=== PATIENT | female | born 1955 | race Two or more races ===

== ENCOUNTER 2023-12-07 17:54 | Inpatient (IN) | payer OTHER ==
[~2023-12-07] VITALS: Ht 160 cm; Wt 82.0 kg
[2023-12-07] MEDS ORDERED: SODIUM CHLORIDE 0.9% 1,000 ML IVB ONE (19:00)
[2023-12-07] MEDS ORDERED: ONDANSETRON HCL 4 MG/2 ML VIAL IV ONE (19:00)
[2023-12-07] MEDS ORDERED: MORPHINE SULFATE 4 MG/ML SYR/VIAL IV ONE (19:00)
[2023-12-07 19:27] LABS: Basophils # (auto) 0.1 10 ^3/uL (0-0.2); Basophils % (auto) 0.5 % (0.0-2.0); Eosinophils # (auto) 0 10 ^3/uL (0-0.8); Eosinophils % (auto) 0.3 % (0.0-7.0); Hemoglobin 13.6 g/dL (12.2-16.2); Lymphocytes # (auto) 2.1 10 ^3/uL (0.4-5.4); Lymphocytes % (auto) 14.4 % (10.0-50.0); Mean Corpuscular Hemoglobin 30.6 pg (28.0-32.0); Mean Corpuscular Hgb Conc. 33.1 g/dL (32.0-36.0); Mean Corpuscular Volume 92.4 fL (80.0-100.0); Monocytes # (auto) 0.7 10 ^3/uL (0-1.3); Monocytes % (auto) 4.6 % (0.0-12.0); Neutrophils # (auto) 11.6 10 ^3/uL (1.6-8.6); Neutrophils % (auto) 80.2 % (37.0-80.0); Nucleated Red Blood Cells % 0.1 %; Red Blood Cells 4.44 10^6/uL (4.0-5.20); Red Cell Distribution Width 13.4 % (11.8-14.3); White Blood Cell 14.4 10^3/uL (4.4-10.8)
[2023-12-07 19:41] LABS: INR 1.01 (0.9-1.15); Partial Thromboplastin Time 23.9 SEC (24.5-34.5); Prothrombin Time 10.6 sec (9.3-11.8)
[2023-12-07 19:42] LABS: Alanine Aminotransferase 23 U/L (7-40); Albumin 4.3 g/dL (3.2-4.8); Alkaline Phosphatase 84 U/L (46-116); Anion Gap 8 (5-15); Aspartate Aminotransferase 22 U/L (13-40); BUN/Creatinine Ratio 18.1 (10.0-20.0); Blood Urea Nitrogen 13 mg/dL (9-23); Calcium 9.6 mg/dL (8.7-10.4); Carbon Dioxide 25 mmol/L (20-30); Chloride 105 mmol/L (98-107); Glucose 126 mg/dL (74-106); Potassium 3.4 mmol/L (3.5-5.1); Sodium 138 mmol/L (136-145)
[2023-12-07 19:43] LABS: Bilirubin, Total 0.5 mg/dL (0.2-1.0); Total Protein 6.9 g/dL (5.7-8.2)
[2023-12-08 04:32] LABS: Urine Bacteria NONE SEEN /hpf (None Seen); Urine Blood Negative /uL (Negative); Urine Clarity Clear (Clear); Urine Color Yellow (Yellow); Urine Protein, UAD Negative (Negative); Urine Specific Gravity 1.014 (1.001-1.035); Urine Urobilinogen Normal (Negative); Urine WBC <1 /hpf (0 - 5)
[2023-12-08 04:36] LABS: Basophils # (auto) 0 10 ^3/uL (0-0.2); Basophils % (auto) 0.2 % (0.0-2.0); Eosinophils # (auto) 0 10 ^3/uL (0-0.8); Eosinophils % (auto) 0.1 % (0.0-7.0); Hematocrit 38.3 % (36.0-46.0); Hemoglobin 12.8 g/dL (12.2-16.2); Lymphocytes # (auto) 1.3 10 ^3/uL (0.4-5.4); Mean Corpuscular Hemoglobin 31.2 pg (28.0-32.0); Mean Corpuscular Hgb Conc. 33.4 g/dL (32.0-36.0); Mean Corpuscular Volume 93.5 fL (80.0-100.0); Monocytes # (auto) 0.5 10 ^3/uL (0-1.3); Neutrophils # (auto) 6.5 10 ^3/uL (1.6-8.6); Neutrophils % (auto) 78.7 % (37.0-80.0); Nucleated Red Blood Cells % 0.1 %; Red Cell Distribution Width 13.3 % (11.8-14.3); White Blood Cell 8.3 10^3/uL (4.4-10.8)
[2023-12-08 04:55] LABS: Alanine Aminotransferase 22 U/L (7-40); Albumin 4.1 g/dL (3.2-4.8); Alkaline Phosphatase 76 U/L (46-116); Anion Gap 7 (5-15); Aspartate Aminotransferase 20 U/L (13-40); BUN/Creatinine Ratio 20.6 (10.0-20.0); Bilirubin, Total 0.4 mg/dL (0.2-1.0); Blood Urea Nitrogen 14 mg/dL (9-23); Calcium 8.8 mg/dL (8.5-10.1); Carbon Dioxide 25 mmol/L (20-30); Chloride 108 mmol/L (98-107); Glucose 148 mg/dL (74-106); Potassium 3.9 mmol/L (3.5-5.1); Sodium 140 mmol/L (136-145); Total Protein 6.3 g/dL (5.7-8.2)
[2023-12-08] MEDS: ONDANSETRON HCL 4 MG/2 ML VIAL IV PRN ×4 (05:20→17:28)
[2023-12-08] MEDS: MORPHINE SULFATE INJ 2 MG/ml SYRG IV PRN ×4 (05:22→17:30)
[2023-12-08 09:13] VITALS: BP 128/56; PULSE 64; PULSE 80; RESP 18; RESP 20; O2SAT 90
[2023-12-08 09:31] VITALS: BP 128/56; PULSE 64; RESP 20; O2SAT 90
[2023-12-08] MEDS ORDERED: AMLO1TAB22 PO (11:29)
[2023-12-08] MEDS ORDERED: SIMV20TA20 PO (11:29)
[2023-12-08] MEDS ORDERED: IBUP200T76 PO (11:29)
[2023-12-08] MEDS ORDERED: HYDR25TA5 PO (11:29)
[2023-12-08] MEDS ORDERED: BENA10TA93 PO (11:29)
[2023-12-08] MEDS ORDERED: CITA10TA6 PO (11:29)
[2023-12-08 13:00] VITALS: BP 124/57; PULSE 69; RESP 20; TEMP 98.8; O2SAT 93
[2023-12-08] MEDS ORDERED: AMLO1TAB23 PO (15:02)
[2023-12-08] MEDS ORDERED: BENA-19 PO (15:02)
[2023-12-08] MEDS ORDERED: CITA-73 PO (15:02)
[2023-12-08 17:00] VITALS: BP 136/65; PULSE 68; RESP 20; TEMP 97.8; O2SAT 89
[2023-12-08 20:00] VITALS: BP 115/55; PULSE 70; RESP 18; TEMP 98.7; O2SAT 95
[2023-12-08] MEDS: HYDROcodone-ACET 5/325MG TAB PO PRN (20:34)
[2023-12-08 22:00] VITALS: BP 115/55; PULSE 70; RESP 18; TEMP 98.7; O2SAT 91
[2023-12-09] VITALS (7 sets, daily range): BP systolic 109–142; BP diastolic 48–63; PULSE 61–68; RESP 16–20; TEMP 97.4–98.7; O2SAT 91–96
[2023-12-09] MEDS: MORPHINE SULFATE INJ 2 MG/ml SYRG IV PRN ×2 (05:06→10:09)
[2023-12-09] MEDS: HYDROcodone-ACET 5/325MG TAB PO PRN (08:01)
[2023-12-09] MEDS: CITALOPRAM HYDROBR 20 MG TAB PO SCH (08:01)
[2023-12-09] MEDS: PANTOPRAZOLE 40 MG TAB PO SCH (08:02)
[2023-12-09] MEDS: BENAZEPRIL HCL 10 MG TAB PO SCH (08:02)
[2023-12-09] MEDS: amLODIPine BESYLATE 5 MG TAB PO SCH (08:02)
[2023-12-09] MEDS ORDERED: PATIENTS OWN MEDICATION (Citalopram Hydrobromide 1 TAB) PO SCH (10:00)
[2023-12-09] MEDS ORDERED: PROPOFOL 10 MG/ML 20 ML IV ONE ×3 (10:07→12:19)
[2023-12-09] MEDS ORDERED: ONDANSETRON HCL 4 MG/2 ML VIAL ONE (10:07)
[2023-12-09] MEDS ORDERED: GLYCOPYRROLATE 0.2 MG/ML 1ML VIAL ONE (10:07)
[2023-12-09] MEDS ORDERED: DexAMETHasone SOD PHOS 10MG/1ML VIAL INJ ONE (10:07)
[2023-12-09] MEDS ORDERED: KETOROLAC TROMETH 30 MG/ML 1ML VIAL ONE (10:07)
[2023-12-09] MEDS ORDERED: KETAMINE 50mg/ML 1ml syringe ONE (10:08)
[2023-12-09] MEDS ORDERED: DexAMETHasone SOD PHOS 4 MG/1ML SDV INJ ONE (10:15)
[2023-12-09] MEDS ORDERED: BUPIVACAINE HCL 50 ML ONE (10:15)
[2023-12-09] MEDS ORDERED: EPINEPHrine HCL 1 MG/1 ML AMP ONE (10:15)
[2023-12-09] MEDS ORDERED: ceFAZolin 2 GM/D5W100ml 100 ML IV ONE (10:52)
[2023-12-09] MEDS ORDERED: GABAPENTIN 400 MG CAP ONE (10:58)
[2023-12-09] MEDS ORDERED: ACETAMINOPHEN IV 100 ML IV ONE (10:58)
[2023-12-09] MEDS ORDERED: CELECOXIB 100 MG CAP ONE (10:58)
[2023-12-09] MEDS ORDERED: ACETAMINOPHEN IV 1000 MG/100ML (10MG/ML) IV ONE (11:00)
[2023-12-09] MEDS ORDERED: CELECOXIB 100 MG CAP PO ONE (11:00)
[2023-12-09] MEDS ORDERED: GABAPENTIN 400 MG CAP PO ONE (11:00)
[2023-12-09] MEDS ORDERED: SODIUM CHLORIDE LOCK 10 ML ONE (11:28)
[2023-12-09] MEDS ORDERED: PHENYLEPHRINE HCL 10 MG/ML VL ONE (11:29)
[2023-12-09] MEDS ORDERED: TRANEXAMIC ACID 20 ML ONE (11:49)
[2023-12-09] MEDS ORDERED: ePHEDrine SULFATE 50 MG/ML AMP ONE (12:48)
[2023-12-09] MEDS: LACTATED RINGER'S 1,000 ML IV SCH ×2 (13:30→23:38)
[2023-12-09] MEDS ORDERED: LABETALOL HCL 5 MG/ML 4ML SYRINGE IV PRN (13:45)
[2023-12-09] MEDS ORDERED: NALOXONE HCL 0.4 MG/ML VIAL IV PRN (13:45)
[2023-12-09] MEDS ORDERED: ePHEDrine SULFATE 50 MG/ML AMP IV PRN (13:45)
[2023-12-09] MEDS ORDERED: fentaNYL CITRATE 100 MCG/2 ML VL IV PRN (13:45)
[2023-12-09] MEDS ORDERED: hydrALAZINE HCL 20 MG/ML VL IV PRN (13:45)
[2023-12-09] MEDS ORDERED: FLUMAZENIL 0.1 MG/ML INJ 10ML MDV IV PRN (13:45)
[2023-12-09] MEDS ORDERED: ONDANSETRON HCL 4 MG/2 ML VIAL IV PRN (13:45)
[2023-12-09] MEDS ORDERED: HYDROmorphone HCL 2 MG/ML VL/or syr IV PRN (13:45)
[2023-12-09] MEDS: SODIUM CHLOR 0.9% PF (SALINE LOCK) 10ML VIAL/SYR IV SCH ×2 (15:43→21:38)
[2023-12-09] MEDS: ceFAZolin 2 GM/D5W100ml 100 ML IV SCH ×2 (15:54→21:38)
[2023-12-10] VITALS (7 sets, daily range): BP systolic 97–132; BP diastolic 42–65; PULSE 60–79; RESP 15–20; TEMP 97.1–98; O2SAT 92–96
[2023-12-10] MEDS: SODIUM CHLOR 0.9% PF (SALINE LOCK) 10ML VIAL/SYR IV SCH ×3 (05:05→21:20)
[2023-12-10 06:20] LABS: Basophils # (auto) 0 10 ^3/uL (0-0.2); Basophils % (auto) 0.1 % (0.0-2.0); Eosinophils # (auto) 0 10 ^3/uL (0-0.8); Hematocrit 35.3 % (36.0-46.0); Hemoglobin 11.9 g/dL (12.2-16.2); Lymphocytes # (auto) 0.9 10 ^3/uL (0.4-5.4); Lymphocytes % (auto) 9.1 % (10.0-50.0); Mean Corpuscular Hemoglobin 32.1 pg (28.0-32.0); Mean Corpuscular Hgb Conc. 33.8 g/dL (32.0-36.0); Mean Corpuscular Volume 95.1 fL (80.0-100.0); Monocytes # (auto) 0.4 10 ^3/uL (0-1.3); Monocytes % (auto) 4.4 % (0.0-12.0); Neutrophils # (auto) 8.8 10 ^3/uL (1.6-8.6); Neutrophils % (auto) 86.4 % (37.0-80.0); Nucleated Red Blood Cells % 0.1 %; Red Blood Cells 3.71 10^6/uL (4.0-5.20); Red Cell Distribution Width 13.1 % (11.8-14.3); White Blood Cell 10.1 10^3/uL (4.4-10.8)
[2023-12-10 06:23] LABS: Anion Gap 8 (5-15); Carbon Dioxide 24 mmol/L (20-30); Chloride 106 mmol/L (98-107); Potassium 3.9 mmol/L (3.5-5.1); Sodium 138 mmol/L (136-145)
[2023-12-10 06:24] LABS: Calcium 9.3 mg/dL (8.5-10.1)
[2023-12-10 06:29] LABS: Blood Urea Nitrogen 12 mg/dL (9-23); Glucose 202 mg/dL (74-106)
[2023-12-10] MEDS: LACTATED RINGER'S 1,000 ML IV SCH (08:43)
[2023-12-10] MEDS: PANTOPRAZOLE 40 MG TAB PO SCH (08:51)
[2023-12-10] MEDS: ENOXAPARIN SOD 40 MG/0.4 ML SYRINGE SC SCH (08:51)
[2023-12-10] MEDS: CITALOPRAM HYDROBR 20 MG TAB PO SCH (08:51)
[2023-12-10] MEDS: HYDROcodone-ACET 10/325MG TAB PO PRN ×2 (08:52→15:10)
[2023-12-10] MEDS: amLODIPine BESYLATE 5 MG TAB PO SCH (10:14)
[2023-12-10] MEDS: BENAZEPRIL HCL 10 MG TAB PO SCH (10:14)
[2023-12-10] MEDS ORDERED: LACTATED RINGER'S 1,000 ML IV SCH (12:00)
[2023-12-10] MEDS ORDERED: AMLO1TAB23 PO (13:57)
[2023-12-10] MEDS: DOCUSATE SOD 100 MG CAP PO SCH (21:19)
[2023-12-11] MEDS: HYDROcodone-ACET 5/325MG TAB PO PRN (00:53)
[2023-12-11 05:00] VITALS: BP 110/52; PULSE 63; RESP 18; TEMP 98.3; O2SAT 95
[2023-12-11] MEDS: SODIUM CHLOR 0.9% PF (SALINE LOCK) 10ML VIAL/SYR IV SCH ×3 (05:31→22:04)
[2023-12-11 08:00] VITALS: BP 115/54; PULSE 65; PULSE 67; RESP 18; TEMP 98.3; O2SAT 95
[2023-12-11 09:00] VITALS: BP 115/54; PULSE 67; RESP 18; TEMP 98.3; O2SAT 95
[2023-12-11] MEDS: amLODIPine BESYLATE 5 MG TAB PO SCH (09:47)
[2023-12-11] MEDS: DOCUSATE SOD 100 MG CAP PO SCH ×2 (09:47→22:04)
[2023-12-11] MEDS: PANTOPRAZOLE 40 MG TAB PO SCH (09:47)
[2023-12-11] MEDS: CITALOPRAM HYDROBR 20 MG TAB PO SCH (09:48)
[2023-12-11] MEDS: BENAZEPRIL HCL 10 MG TAB PO SCH (09:49)
[2023-12-11] MEDS: ENOXAPARIN SOD 40 MG/0.4 ML SYRINGE SC SCH (09:50)
[2023-12-11] MEDS: HYDROcodone-ACET 10/325MG TAB PO PRN ×2 (10:45→14:40)
[2023-12-11 13:00] VITALS: BP 119/61; PULSE 72; RESP 20; TEMP 98.1; O2SAT 94
[2023-12-11 17:00] VITALS: BP 98/57; PULSE 60; RESP 18; TEMP 98.1; O2SAT 95
[2023-12-11 20:00] VITALS: BP_SYST 115; BP_SYST 99; BP_DIAS 51; BP_DIAS 54; PULSE 65; PULSE 67; PULSE 94; RESP 18; TEMP 98; TEMP 98.3; O2SAT 93; O2SAT 95
[2023-12-12] MEDS: HYDROcodone-ACET 10/325MG TAB PO PRN ×4 (04:53→20:32)
[2023-12-12 05:00] VITALS: BP 132/77; PULSE 63; RESP 19; TEMP 98.3; O2SAT 96
[2023-12-12] MEDS: SODIUM CHLOR 0.9% PF (SALINE LOCK) 10ML VIAL/SYR IV SCH ×3 (06:41→20:31)
[2023-12-12 08:00] VITALS: BP 116/53; PULSE 70; RESP 19; TEMP 98.1; O2SAT 93
[2023-12-12 09:00] VITALS: BP 116/53; PULSE 70; RESP 19; TEMP 98.1; O2SAT 93
[2023-12-12] MEDS: DOCUSATE SOD 100 MG CAP PO SCH ×2 (09:35→20:31)
[2023-12-12] MEDS: ENOXAPARIN SOD 40 MG/0.4 ML SYRINGE SC SCH (09:35)
[2023-12-12] MEDS: CITALOPRAM HYDROBR 20 MG TAB PO SCH (09:36)
[2023-12-12] MEDS: PANTOPRAZOLE 40 MG TAB PO SCH (09:36)
[2023-12-12] MEDS: amLODIPine BESYLATE 5 MG TAB PO SCH (10:00)
[2023-12-12] MEDS: BENAZEPRIL HCL 10 MG TAB PO SCH (10:00)
[2023-12-12 13:01] VITALS: BP 109/52; PULSE 62; RESP 18; TEMP 97.9; O2SAT 95
[2023-12-12] MEDS: LACTULOSE 20Gm/30ML SOLN PO PRN (16:45)
[2023-12-12 20:00] VITALS: BP 116/53; PULSE 70; PULSE 73; RESP 19; RESP 20; TEMP 98.1; O2SAT 95
[2023-12-13] VITALS (7 sets, daily range): BP systolic 104–134; BP diastolic 43–59; PULSE 67–111; RESP 17–20; TEMP 97.8–99.3; O2SAT 90–96
[2023-12-13] MEDS: SODIUM CHLOR 0.9% PF (SALINE LOCK) 10ML VIAL/SYR IV SCH ×3 (05:52→21:38)
[2023-12-13] MEDS: LACTULOSE 20Gm/30ML SOLN PO PRN (05:52)
[2023-12-13] MEDS: HYDROcodone-ACET 10/325MG TAB PO PRN ×3 (09:02→19:40)
[2023-12-13] MEDS: CITALOPRAM HYDROBR 20 MG TAB PO SCH (09:03)
[2023-12-13] MEDS: BENAZEPRIL HCL 10 MG TAB PO SCH (09:03)
[2023-12-13] MEDS: amLODIPine BESYLATE 5 MG TAB PO SCH (09:03)
[2023-12-13] MEDS: ENOXAPARIN SOD 40 MG/0.4 ML SYRINGE SC SCH (09:04)
[2023-12-13] MEDS: DOCUSATE SOD 100 MG CAP PO SCH ×2 (09:04→21:38)
[2023-12-13] MEDS: PANTOPRAZOLE 40 MG TAB PO SCH (09:04)
[2023-12-14] MEDS: HYDROcodone-ACET 10/325MG TAB PO PRN ×3 (02:36→13:56)
[2023-12-14 05:00] VITALS: BP 150/72; PULSE 91; RESP 20; TEMP 98.6; O2SAT 98
[2023-12-14] MEDS: SODIUM CHLOR 0.9% PF (SALINE LOCK) 10ML VIAL/SYR IV SCH (06:19)
[2023-12-14 06:30] LABS: Basophils # (auto) 0 10 ^3/uL (0-0.2); Basophils % (auto) 0.4 % (0.0-2.0); Eosinophils # (auto) 0.2 10 ^3/uL (0-0.8); Eosinophils % (auto) 2.6 % (0.0-7.0); Hemoglobin 11.6 g/dL (12.2-16.2); Lymphocytes # (auto) 1.8 10 ^3/uL (0.4-5.4); Lymphocytes % (auto) 24.3 % (10.0-50.0); Mean Corpuscular Hemoglobin 31.9 pg (28.0-32.0); Mean Corpuscular Hgb Conc. 34.2 g/dL (32.0-36.0); Mean Corpuscular Volume 93.2 fL (80.0-100.0); Monocytes # (auto) 0.6 10 ^3/uL (0-1.3); Monocytes % (auto) 7.9 % (0.0-12.0); Neutrophils # (auto) 4.8 10 ^3/uL (1.6-8.6); Neutrophils % (auto) 64.8 % (37.0-80.0); Nucleated Red Blood Cells % 0.1 %; Red Blood Cells 3.65 10^6/uL (4.0-5.20); Red Cell Distribution Width 13.7 % (11.8-14.3); White Blood Cell 7.3 10^3/uL (4.4-10.8)
[2023-12-14 06:31] LABS: Chloride 108 mmol/L (98-107); Potassium 4.6 mmol/L (3.5-5.1); Sodium 139 mmol/L (136-145)
[2023-12-14 06:32] LABS: Anion Gap 3 (5-15); Carbon Dioxide 28 mmol/L (20-30)
[2023-12-14 06:37] LABS: BUN/Creatinine Ratio 16.9 (10.0-20.0); Blood Urea Nitrogen 10 mg/dL (9-23); Glucose 98 mg/dL (74-106)
[2023-12-14 06:46] LABS: INR 0.97 (0.9-1.15); Partial Thromboplastin Time 25.7 SEC (24.5-34.5); Prothrombin Time 10.2 sec (9.3-11.8)
[2023-12-14 08:00] VITALS: BP 131/58; PULSE 63; RESP 16; TEMP 98.1; O2SAT 93
[2023-12-14] MEDS: ENOXAPARIN SOD 40 MG/0.4 ML SYRINGE SC SCH (08:27)
[2023-12-14] MEDS: BENAZEPRIL HCL 10 MG TAB PO SCH (08:28)
[2023-12-14] MEDS: amLODIPine BESYLATE 5 MG TAB PO SCH (08:29)
[2023-12-14] MEDS: CITALOPRAM HYDROBR 20 MG TAB PO SCH (08:29)
[2023-12-14] MEDS: PANTOPRAZOLE 40 MG TAB PO SCH (08:29)
[2023-12-14] MEDS: DOCUSATE SOD 100 MG CAP PO SCH (08:29)
[2023-12-14 08:32] VITALS: BP 131/58; PULSE 63; RESP 16; TEMP 98.1; O2SAT 93
[2023-12-14 12:29] VITALS: BP 113/53; PULSE 76; RESP 18; TEMP 98.8; O2SAT 92
== END 2023-12-14 14:27 | DRG 481 ==
LOC: EDUNIT# 17:54 → EDBD 17:54 → ER 17:54 → OVERFLOW 22:33 → WEST WING 12-08 09:07
PROVIDERS: ADMIT Nurse Practitioner; ATTEND Nurse Practitioner Acute Care
PROC: BQ13ZZZ Fluoroscopy of Right Femur (ICD-10-PCS; 2023-12-09)
PROC: 0QS604Z Reposition Right Upper Femur with Internal Fixation Device, Open Approach (ICD-10-PCS; principal; 2023-12-09 11:16)
DX: S72.141A Displaced intertrochanteric fracture of right femur, initial encounter for closed fracture (principal); R65.10 Systemic inflammatory response syndrome (SIRS) of non-infectious origin without acute organ dysfunction; I10 Essential (primary) hypertension; E66.9 Obesity, unspecified; W01.0XXA Fall on same level from slipping, tripping and stumbling without subsequent striking against object, initial encounter; E78.5 Hyperlipidemia, unspecified; Z80.1 Family history of malignant neoplasm of trachea, bronchus and lung; Z82.5 Family history of asthma and other chronic lower respiratory diseases; Y93.G3 Activity, cooking and baking; Y92.090 Kitchen in other non-institutional residence as the place of occurrence of the external cause; Y99.8 Other external cause status; Z68.32 Body mass index [BMI] 32.0-32.9, adult
CPT/HCPCS: 36415; 71045; 73502; 73700; 76000; 80048; 80053; 81001; 83735; 85025; 85610; 85730; 86850; 86900; 86901; 93005; 93306; 97110; 97116; 97163; 97530; G0378; J0131; J0171; J1100; J1885; J2405; J2704; J3490

== ENCOUNTER → 2024-01-12 | Outpatient (CLI) | payer OTHER ==
[~2024-01-12] MED LIST: AMLO1TAB23 PO; BENA-19 PO; CITA-73 PO; HYDR25TA5 PO; IBUP200T76 PO; SIMV20TA20 PO
[2024-01-12 07:01] LABS: Basophils # (auto) 0 10 ^3/uL (0-0.2); Basophils % (auto) 0.8 % (0.0-2.0); Eosinophils # (auto) 0.1 10 ^3/uL (0-0.8); Eosinophils % (auto) 2.2 % (0.0-7.0); Lymphocytes # (auto) 1.6 10 ^3/uL (0.4-5.4); Lymphocytes % (auto) 33.2 % (10.0-50.0); Mean Corpuscular Hemoglobin 30.7 pg (28.0-32.0); Mean Corpuscular Hgb Conc. 33.4 g/dL (32.0-36.0); Mean Corpuscular Volume 91.9 fL (80.0-100.0); Monocytes # (auto) 0.4 10 ^3/uL (0-1.3); Monocytes % (auto) 7.7 % (0.0-12.0); Neutrophils # (auto) 2.8 10 ^3/uL (1.6-8.6); Neutrophils % (auto) 56.1 % (37.0-80.0); Red Blood Cells 4.25 10^6/uL (4.0-5.20); White Blood Cell 4.9 10^3/uL (4.4-10.8)
[2024-01-12 07:27] LABS: Urine Bacteria NONE SEEN /hpf (None Seen); Urine Blood Negative /uL (Negative); Urine Clarity Clear (Clear); Urine Protein, UAD Negative (Negative); Urine Specific Gravity 1.005 (1.001-1.035); Urine Urobilinogen Normal (Negative); Urine WBC <1 /hpf (0 - 5); Urine pH 5.5 (5.0-8.0)
[2024-01-12 07:28] LABS: Urine Color Straw (Yellow)
[2024-01-12 07:32] LABS: Alanine Aminotransferase 22 U/L (7-40); Albumin 4.2 g/dL (3.2-4.8); Alkaline Phosphatase 133 U/L (46-116); Anion Gap 7 (5-15); Aspartate Aminotransferase 12 U/L (13-40); BUN/Creatinine Ratio 11.9 (10.0-20.0); Bilirubin, Total 0.4 mg/dL (0.2-1.0); Blood Urea Nitrogen 8 mg/dL (9-23); Calcium 9.8 mg/dL (8.7-10.4); Carbon Dioxide 28 mmol/L (20-30); Chloride 103 mmol/L (98-107); Glucose 105 mg/dL (74-106); Potassium 3.7 mmol/L (3.5-5.1); Sodium 138 mmol/L (136-145); Total Protein 7.3 g/dL (5.7-8.2); Uric Acid 6.6 mg/dL (3.1-7.8)
[2024-01-12 07:35] LABS: Folate (Folic Acid) 21.91 ng/mL (>5.38)
[2024-01-12 07:45] LABS: Triglycerides 143 mg/dL (< 150)
[2024-01-12 07:46] LABS: LDL Cholesterol 143 mg/dL (< 100)
[2024-01-12 07:47] LABS: Cholesterol 213 mg/dL (< 200); HDL Cholesterol 48 mg/dL (40-59)
== END | disposition home or self-care (01) ==
LOC: LAB 06:13
PROVIDERS: ATTEND Internal Medicine
DX: R78.89 Finding of other specified substances, not normally found in blood (principal); E78.9 Disorder of lipoprotein metabolism, unspecified; R68.89 Other general symptoms and signs; R73.09 Other abnormal glucose; E61.2 Magnesium deficiency; E79.0 Hyperuricemia without signs of inflammatory arthritis and tophaceous disease; E85.9 Amyloidosis, unspecified; R82.90 Unspecified abnormal findings in urine; D51.9 Vitamin B12 deficiency anemia, unspecified
CPT/HCPCS: 36415; 80053; 80061; 81001; 82306; 82607; 82746; 83036; 83735; 84443; 84550; 85025; 87086

== ENCOUNTER → 2024-04-29 | Outpatient (CLI) | payer OTHER ==
[~2024-04-29] MED LIST changes: -BENA-19 PO; +BENA10TA90 PO
[2024-04-29 06:50] LABS: Urine Bacteria MOD /hpf (None Seen); Urine Blood Negative /uL (Negative); Urine Clarity Turbid (Clear); Urine Color Yellow (Yellow); Urine Mucus FEW (None Seen); Urine Protein, UAD TRACE (Negative); Urine Specific Gravity 1.019 (1.001-1.035); Urine Urobilinogen 2 mg/dL (Negative); Urine WBC 80 /hpf (0 - 5); Urine pH 5.5 (5.0-9.0)
[2024-04-29 07:01] LABS: Basophils # (auto) 0 10 ^3/uL (0-0.2); Basophils % (auto) 0.7 % (0.0-2.0); Eosinophils # (auto) 0.1 10 ^3/uL (0-0.8); Eosinophils % (auto) 1.5 % (0.0-7.0); Hematocrit 44.2 % (36.0-46.0); Hemoglobin 15.4 g/dL (12.2-16.2); Lymphocytes % (auto) 34.7 % (10.0-50.0); Mean Corpuscular Hemoglobin 30.9 pg (28.0-32.0); Mean Corpuscular Hgb Conc. 34.9 g/dL (32.0-36.0); Mean Corpuscular Volume 88.5 fL (80.0-100.0); Monocytes # (auto) 0.4 10 ^3/uL (0-1.3); Monocytes % (auto) 6.7 % (0.0-12.0); Neutrophils # (auto) 3.3 10 ^3/uL (1.6-8.6); Neutrophils % (auto) 56.4 % (37.0-80.0); Nucleated Red Blood Cells % 0.2 %; Red Blood Cells 4.99 10^6/uL (4.0-5.20); Red Cell Distribution Width 14.6 % (11.8-14.3); White Blood Cell 5.9 10^3/uL (4.4-10.8)
[2024-04-29 07:30] LABS: Alanine Aminotransferase 11 U/L (7-40); Alkaline Phosphatase 100 U/L (46-116); Anion Gap 10 (5-15); Aspartate Aminotransferase 11 U/L (13-40); BUN/Creatinine Ratio 16.9 (10.0-20.0); Blood Urea Nitrogen 12 mg/dL (9-23); Carbon Dioxide 27 mmol/L (20-30); Chloride 104 mmol/L (98-107); Glucose 92 mg/dL (74-106); Potassium 3.4 mmol/L (3.5-5.1); Sodium 141 mmol/L (136-145); Uric Acid 5.7 mg/dL (3.1-7.8)
[2024-04-29 07:31] LABS: Albumin 4.5 g/dL (3.2-4.8); Bilirubin, Total 0.9 mg/dL (0.2-1.0); Total Protein 7.2 g/dL (5.7-8.2)
[2024-04-29 07:34] LABS: Folate (Folic Acid) 22.58 ng/mL (>5.38)
[2024-04-29 09:01] LABS: LDL Cholesterol 183 mg/dL (< 100); Triglycerides 139 mg/dL (< 150)
[2024-04-29 09:02] LABS: HDL Cholesterol 58 mg/dL (40-59)
[2024-04-29 09:03] LABS: Cholesterol 266 mg/dL (< 200)
== END | disposition home or self-care (01) ==
LOC: LAB 06:08
PROVIDERS: ATTEND Internal Medicine
DX: E79.0 Hyperuricemia without signs of inflammatory arthritis and tophaceous disease (principal); E61.2 Magnesium deficiency; R78.89 Finding of other specified substances, not normally found in blood; E78.9 Disorder of lipoprotein metabolism, unspecified; R68.89 Other general symptoms and signs; R73.09 Other abnormal glucose; E85.9 Amyloidosis, unspecified; D51.9 Vitamin B12 deficiency anemia, unspecified; R82.90 Unspecified abnormal findings in urine; Z79.899 Other long term (current) drug therapy
CPT/HCPCS: 36415; 80053; 80061; 81001; 82306; 82607; 82746; 83036; 83735; 84443; 84550; 85025; 87086

== ENCOUNTER → 2024-11-17 | Outpatient (CLI) | payer OTHER ==
[2024-11-17 06:59] LABS: Urine Bacteria FEW /hpf (None Seen); Urine Blood Negative /uL (Negative); Urine Clarity Clear (Clear); Urine Color Colorless (Yellow); Urine Protein, UAD Negative (Negative); Urine Specific Gravity 1.009 (1.001-1.035); Urine Urobilinogen Normal (Negative); Urine WBC 2 /hpf (0 - 5)
[2024-11-17 07:09] LABS: Basophils # (auto) 0 10 ^3/uL (0-0.2); Basophils % (auto) 0.7 % (0.0-2.0); Eosinophils # (auto) 0.1 10 ^3/uL (0-0.8); Eosinophils % (auto) 1.6 % (0.0-7.0); Hematocrit 42.2 % (36.0-46.0); Hemoglobin 14.8 g/dL (12.2-16.2); Lymphocytes # (auto) 1.7 10 ^3/uL (0.4-5.4); Lymphocytes % (auto) 33.8 % (10.0-50.0); Mean Corpuscular Hemoglobin 32.2 pg (28.0-32.0); Mean Corpuscular Hgb Conc. 35.2 g/dL (32.0-36.0); Mean Corpuscular Volume 91.5 fL (80.0-100.0); Monocytes # (auto) 0.4 10 ^3/uL (0-1.3); Monocytes % (auto) 6.9 % (0.0-12.0); Neutrophils # (auto) 2.9 10 ^3/uL (1.6-8.6); Nucleated Red Blood Cells % 0.3 %; Platelet Count (auto) 168 10^3/uL (140-450); Red Blood Cells 4.61 10^6/uL (4.0-5.20); Red Cell Distribution Width 13.6 % (11.8-14.3); White Blood Cell 5.1 10^3/uL (4.4-10.8)
[2024-11-17 07:45] LABS: Folate (Folic Acid) 12.8 ng/mL (>5.38)
[2024-11-17 07:49] LABS: Alanine Aminotransferase 14 U/L (7-40); Albumin 4.6 g/dL (3.2-4.8); Anion Gap 9 (5-15); Aspartate Aminotransferase 16 U/L (13-40); BUN/Creatinine Ratio 10.4 (10.0-20.0); Carbon Dioxide 30 mmol/L (20-31); Chloride 102 mmol/L (98-107); Glucose 97 mg/dL (74-106); LDL Cholesterol 89 mg/dL (< 100); Potassium 3.5 mmol/L (3.5-5.1); Sodium 141 mmol/L (136-145); Triglycerides 122 mg/dL (< 150)
[2024-11-17 07:50] LABS: Bilirubin, Total 0.6 mg/dL (0.2-1.0); Cholesterol 188 mg/dL (< 200); Total Protein 7.1 g/dL (5.7-8.2)
[2024-11-17 07:58] LABS: Alkaline Phosphatase 120 U/L (46-116); Blood Urea Nitrogen 8 mg/dL (9-23); HDL Cholesterol 80 mg/dL (40-59)
[2024-11-17 09:25] LABS: Uric Acid 6.1 mg/dL (3.1-7.8)
== END | disposition home or self-care (01) ==
LOC: LAB 06:06
PROVIDERS: ATTEND Internal Medicine
DX: E61.2 Magnesium deficiency (principal); E55.9 Vitamin D deficiency, unspecified; D51.9 Vitamin B12 deficiency anemia, unspecified; E78.9 Disorder of lipoprotein metabolism, unspecified; E79.0 Hyperuricemia without signs of inflammatory arthritis and tophaceous disease; R94.6 Abnormal results of thyroid function studies; R73.09 Other abnormal glucose; R82.79 Other abnormal findings on microbiological examination of urine; R68.89 Other general symptoms and signs; R82.90 Unspecified abnormal findings in urine
CPT/HCPCS: 36415; 80053; 80061; 81001; 82306; 82607; 82746; 83036; 84443; 84550; 85025; 87086

== ENCOUNTER → 2025-02-03 | Outpatient (CLI) | payer OTHER ==
[2025-02-03 06:26] LABS: Urine Bacteria None Seen /hpf (None Seen)
[2025-02-03 06:40] LABS: Basophils # (auto) 0 10 ^3/uL (0-0.2); Basophils % (auto) 0.8 % (0.0-2.0); Eosinophils # (auto) 0.1 10 ^3/uL (0-0.8); Eosinophils % (auto) 1.4 % (0.0-7.0); Hematocrit 43.5 % (36.0-46.0); Hemoglobin 15.3 g/dL (12.2-16.2); Lymphocytes % (auto) 36.5 % (10.0-50.0); Mean Corpuscular Hemoglobin 31.9 pg (28.0-32.0); Mean Corpuscular Hgb Conc. 35.1 g/dL (32.0-36.0); Mean Corpuscular Volume 90.9 fL (80.0-100.0); Monocytes # (auto) 0.4 10 ^3/uL (0-1.3); Monocytes % (auto) 6.9 % (0.0-12.0); Neutrophils % (auto) 54.4 % (37.0-80.0); Nucleated Red Blood Cells % 0.1 %; Platelet Count (auto) 164 10^3/uL (140-450); Red Blood Cells 4.79 10^6/uL (4.0-5.20); Red Cell Distribution Width 13.5 % (11.8-14.3); White Blood Cell 5.5 10^3/uL (4.4-10.8)
[2025-02-03 06:43] LABS: Urine Blood Negative /uL (Negative); Urine Clarity Clear (Clear); Urine Color Light-Yellow (Yellow); Urine Protein, UAD Negative (Negative); Urine Specific Gravity 1.014 (1.001-1.035); Urine Squamous Epithelial Cell FEW /hpf (<5); Urine Urobilinogen Normal (Negative); Urine WBC 1 /HPF (0-5); Urine pH 5.5 (5.0-9.0)
[2025-02-03 06:53] LABS: Alanine Aminotransferase 16 U/L (7-40); Alkaline Phosphatase 99 U/L (46-116); Anion Gap 7 (5-15); Aspartate Aminotransferase 16 U/L (13-40); BUN/Creatinine Ratio 12.2 (10.0-20.0); Bilirubin, Total 0.7 mg/dL (0.2-1.0); Blood Urea Nitrogen 10 mg/dL (9-23); Calcium 10.5 mg/dL (8.7-10.4); Carbon Dioxide 29 mmol/L (20-31); Chloride 103 mmol/L (98-107); Cholesterol 167 mg/dL (< 200); Glucose 97 mg/dL (74-106); HDL Cholesterol 70 mg/dL (40-59); LDL Cholesterol 81 mg/dL (< 100); Potassium 4.1 mmol/L (3.5-5.1); Sodium 139 mmol/L (136-145); Total Protein 7.4 g/dL (5.7-8.2); Triglycerides 55 mg/dL (< 150)
[2025-02-03 07:01] LABS: Folate (Folic Acid) 18.78 ng/mL (>5.38)
[2025-02-03 07:03] LABS: Uric Acid 5.8 mg/dL (3.1-7.8)
== END | disposition home or self-care (01) ==
LOC: LAB 06:03
PROVIDERS: ATTEND Internal Medicine
DX: E61.2 Magnesium deficiency (principal); E55.9 Vitamin D deficiency, unspecified; D51.9 Vitamin B12 deficiency anemia, unspecified; E78.49 Other hyperlipidemia; E79.0 Hyperuricemia without signs of inflammatory arthritis and tophaceous disease; R82.79 Other abnormal findings on microbiological examination of urine; R73.09 Other abnormal glucose; R94.6 Abnormal results of thyroid function studies; R68.89 Other general symptoms and signs; R82.998 Other abnormal findings in urine; R82.90 Unspecified abnormal findings in urine
CPT/HCPCS: 36415; 80053; 80061; 81001; 82306; 82607; 82746; 83036; 84443; 84550; 85025; 87086

== ENCOUNTER 2025-05-15 06:08 | Outpatient (CLI) | payer OTHER ==
[2025-05-15 06:31] LABS: Urine Bacteria None Seen /hpf (None Seen)
[2025-05-15 06:48] LABS: Basophils # (auto) 0 10 ^3/uL (0-0.2); Basophils % (auto) 0.8 % (0.0-2.0); Eosinophils # (auto) 0.1 10 ^3/uL (0-0.8); Hematocrit 43.7 % (36.0-46.0); Hemoglobin 15.4 g/dL (12.2-16.2); Lymphocytes # (auto) 2.2 10 ^3/uL (0.4-5.4); Lymphocytes % (auto) 36.4 % (10.0-50.0); Mean Corpuscular Hgb Conc. 35.2 g/dL (32.0-36.0); Mean Corpuscular Volume 90.9 fL (80.0-100.0); Monocytes # (auto) 0.4 10 ^3/uL (0-1.3); Monocytes % (auto) 6.6 % (0.0-12.0); Neutrophils # (auto) 3.3 10 ^3/uL (1.6-8.6); Neutrophils % (auto) 54.2 % (37.0-80.0); Nucleated Red Blood Cells % 0.2 %; Platelet Count (auto) 180 10^3/uL (140-450); Red Blood Cells 4.81 10^6/uL (4.0-5.20); Red Cell Distribution Width 13.3 % (11.8-14.3)
[2025-05-15 07:17] LABS: Alanine Aminotransferase 14 U/L (7-40); Alkaline Phosphatase 98 U/L (46-116); Anion Gap 8 (5-15); Aspartate Aminotransferase 21 U/L (<34); BUN/Creatinine Ratio 13.9 (10.0-20.0); Bilirubin, Total 0.6 mg/dL (0.2-1.0); Blood Urea Nitrogen 11 mg/dL (9-23); Carbon Dioxide 30 mmol/L (20-31); Chloride 104 mmol/L (98-107); Glucose 97 mg/dL (74-106); Sodium 142 mmol/L (136-145); Total Protein 7.4 g/dL (5.7-8.2); Triglycerides 72 mg/dL (< 150)
[2025-05-15 07:20] LABS: Albumin 4.9 g/dL (3.2-4.8); Calcium 10.7 mg/dL (8.7-10.4); Cholesterol 202 mg/dL (< 200); HDL Cholesterol 81 mg/dL (40-59); LDL Cholesterol 113 mg/dL (< 100)
[2025-05-15 07:30] LABS: Uric Acid 6.2 mg/dL (3.1-7.8)
[2025-05-15 07:33] LABS: Urine Blood Negative /uL (Negative); Urine Clarity Clear (Clear); Urine Color Colorless (Yellow); Urine Protein, UAD Negative (Negative); Urine Specific Gravity 1.003 (1.001-1.035); Urine Squamous Epithelial Cell None Seen /hpf (<5); Urine Urobilinogen Normal (Negative); Urine WBC < 1 /HPF (0-5)
[2025-05-15 10:50] LABS: Folate (Folic Acid) 17.66 ng/mL (>5.38)
== END 2025-05-15 17:00 | disposition home or self-care (01) ==
LOC: LAB 06:08
PROVIDERS: ATTEND Internal Medicine
DX: E78.49 Other hyperlipidemia (principal); E61.2 Magnesium deficiency; R94.6 Abnormal results of thyroid function studies; E79.0 Hyperuricemia without signs of inflammatory arthritis and tophaceous disease; R82.998 Other abnormal findings in urine; E55.9 Vitamin D deficiency, unspecified; R82.90 Unspecified abnormal findings in urine; D51.9 Vitamin B12 deficiency anemia, unspecified; R68.89 Other general symptoms and signs; R73.09 Other abnormal glucose
CPT/HCPCS: 36415; 80053; 80061; 81001; 82306; 82607; 82746; 83036; 84443; 84550; 85025; 87086

== ENCOUNTER → 2025-09-22 | Outpatient (CLI) | payer OTHER ==
[2025-09-22 07:35] LABS: Hematocrit 45.5 % (36.0-46.0); Hemoglobin 15.9 g/dL (12.2-16.2); Mean Corpuscular Hemoglobin 31.7 pg (28.0-32.0); Mean Corpuscular Volume 90.5 fL (80.0-100.0); Nucleated Red Blood Cells % 0.2 %
[2025-09-22 08:04] LABS: Urine Protein, UAD Negative (Negative)
[2025-09-22 08:24] LABS: Alanine Aminotransferase 20 U/L (7-40); Alkaline Phosphatase 95 U/L (46-116); Anion Gap 11 (5-15); BUN/Creatinine Ratio 15.9 (10.0-20.0); Blood Urea Nitrogen 13 mg/dL (9-23); Calcium 10.2 mg/dL (8.7-10.4); Carbon Dioxide 30 mmol/L (20-31); Glucose 88 mg/dL (74-106); Magnesium 2.1 mg/dL (1.6-2.6); Sodium 137 mmol/L (136-145); Total Protein 7.9 g/dL (5.7-8.2); Triglycerides 77 mg/dL (< 150)
[2025-09-22 08:25] LABS: Chloride 96 mmol/L (98-107); Potassium 3.2 mmol/L (3.5-5.1)
[2025-09-22 08:26] LABS: Albumin 5.0 g/dL (3.2-4.8); Bilirubin, Total 1.0 mg/dL (0.2-1.0); Cholesterol 188 mg/dL (< 200); HDL Cholesterol 82 mg/dL (40-59)
[2025-09-22 10:14] LABS: Uric Acid 5.8 mg/dL (3.1-7.8)
== END | disposition home or self-care (01) ==
LOC: LAB 06:05
PROVIDERS: ATTEND Nurse Practitioner Family
DX: E78.49 Other hyperlipidemia (principal); E61.2 Magnesium deficiency; E79.0 Hyperuricemia without signs of inflammatory arthritis and tophaceous disease; E55.9 Vitamin D deficiency, unspecified; D51.9 Vitamin B12 deficiency anemia, unspecified; R82.79 Other abnormal findings on microbiological examination of urine; R82.90 Unspecified abnormal findings in urine; R82.998 Other abnormal findings in urine; R94.6 Abnormal results of thyroid function studies; R68.89 Other general symptoms and signs; R73.09 Other abnormal glucose
CPT/HCPCS: 36415; 80053; 80061; 81001; 82306; 82607; 82746; 83036; 83735; 84443; 84480; 84550; 85025; 87086